=== PATIENT | male | born 1960 | race Caucasian/White ===

== ENCOUNTER 2016-10-09 14:31 | Outpatient (CLI) | payer MEDICARE | END 2016-10-09 14:32 | disposition home or self-care (01) | LOC: LABLEX 14:31 | PROVIDERS: ATTEND Family Medicine | DX: L02.91 Cutaneous abscess, unspecified (principal) | CPT/HCPCS: 87070; 87077; 87186; 87205 ==

== ENCOUNTER 2017-04-22 10:45 | Outpatient (CLI) | payer MEDICARE ==
--- NOTE | 2017-04-22 20:09 | ULT ---
LEFT LOWER EXTREMITY VENOUS ULTRASOUND 04/22/17 Color duplex doppler ultrasonography of the deep veins of the left lower extremity was performed. All deep veins are freely compressible from groin to ankle. No echogenic clot was seen on the 2D images. There is normal doppler response to augmentation maneuvers. An incidental finding is a small amount of free fluid in-between muscle layers in the left calf, etiology and significance unknown. IMPRESSION: 1. No evidence of DVT. 2. Small amount of free fluid deep to one of the superficial muscles of uncertain etiology. POS: HOME
== END 2017-04-22 10:46 | disposition home or self-care (01) ==
LOC: BURULT 10:45
PROVIDERS: ATTEND Nurse Practitioner
DX: I82.442 Acute embolism and thrombosis of left tibial vein (principal)